=== PATIENT | female | born 1970 | race African-American/Black ===

== ENCOUNTER → 2016-12-30 | Outpatient (CLI) | payer SELFPAY ==
[2017-01-01 09:49] LABS: BLOOD UREA NITROGEN 7 mg/dL (7-20); CALCIUM 9.6 mg/dL (8.4-10.2); CARBON DIOXIDE 25 mmol/L (22-30); CHLORIDE 105 mmol/L (98-107); CREATININE RESULT 0.85 mg/dL (0.52-1.25); GLUCOSE 105 mg/dL (75-110); POTASSIUM 4.4 mmol/L (3.6-5.0)
[2017-01-01 09:50] LABS: ALANINE AMINOTRANSFERASE 51 U/L (9-52); ALBUMIN 4.1 g/dL (3.5-5.0); ALKALINE PHOSPHATASE 91 U/L (38-126); ANION GAP 11 (5-19); ASPARTATE AMINO TRANSFERASE 35 U/L (14-36); BILIRUBIN,DIRECT 0.3 mg/dL (0.0-0.4); BILIRUBIN,TOTAL 0.5 mg/dL (0.2-1.3); SODIUM 140.9 mmol/L (137-145); TOTAL PROTEIN 7.2 g/dL (6.3-8.2)
[2017-01-01 15:16] LABS: CHOLESTEROL 188.44 mg/dL (0-200); DIRECT LDL 110 mg/dL (<100); Direct HDL 35 mg/dL (>40); TRIGLYCERIDES 148 mg/dL (<150); VLDL CHOLESTEROL 29.6 mg/dL (10-31)
== END ==
LOC: OD 21:23
PROVIDERS: ATTEND Internal Medicine
DX: E55.9 Vitamin D deficiency, unspecified (principal); R73.09 Other abnormal glucose; Z13.220 Encounter for screening for lipoid disorders
CPT/HCPCS: 36415; 80053; 80061; 82306; 83036; 84443

== ENCOUNTER → 2016-12-31 | Outpatient (CLI) | payer SELFPAY | LOC: OD 08:11 | PROVIDERS: ATTEND Internal Medicine | DX: M54.41 Lumbago with sciatica, right side (principal) | CPT/HCPCS: 72100 ==

== ENCOUNTER 2018-01-25 19:32 | Emergency (ER) | payer SELFPAY ==
[2018-01-25] MEDS ORDERED: MECLIZINE HCL 25 MG TABLET PO ONE (21:23)
--- NOTE | 2018-01-25 21:27 | ER Document Report ---
ED Extremity Problem, Lower - General Chief Complaint: Leg Pain Stated Complaint: LT LEG PAIN Time Seen by Provider: 01/25/18 21:08 Notes: This is a 47-year-old female patient complaining of pain down the left leg as well as dizziness. Patient states that she overdid herself graduation on Wednesday. Was running around and on her feet all day long. Now having pain that shoots down her low back all the way down to her left lower extremity. Most of the pain is located behind the knee and in the calf. Patient states that she had a family member that had a blood clot before but this was not a blood relative. She is worried about blood clots and wanted to get checked out. Denies any chest pain but does have some dizziness that comes and goes. Seems to be worse with head movement. No fever, chills, sweats. No other major problems at this time. TRAVEL OUTSIDE OF THE [place] IN LAST 30 DAYS: No - HPI Patient complains to provider of: Pain Location: Leg - Related Data Allergies/Adverse Reactions: acetaminophen [From Percocet] Adverse Reaction (Verified 01/25/18 19:37) oxycodone [From Percocet] Adverse Reaction (Verified 01/25/18 19:37) Past Medical History - General Information source: Patient - Social History Smoking Status: Current Every Day Smoker Cigarette use (# per day): Yes Smoking Education Provided: Yes Frequency of alcohol use: None Drug Abuse: None Lives with: Spouse/Significant other Family History: Hypertension - Past Medical History Cardiac Medical History: Reports: Hx Hypertension Past Surgical History: Reports: Hx Cholecystectomy, Hx Hysterectomy, Hx Tubal Ligation - Immunizations Hx Diphtheria, Pertussis, Tetanus Vaccination: Yes Review of Systems - Review of Systems Constitutional: No symptoms reported EENT: See HPI, Vertigo. denies: Eye pain, Eye discharge, Blurred vision, Tearing, Double vision, Ear pain Cardiovascular: denies: Chest pain, Palpitations, Heart racing Respiratory: No symptoms reported Gastrointestinal: No symptoms reported Genitourinary: No symptoms reported Female Genitourinary: No symptoms reported Musculoskeletal: See HPI, Muscle pain, Leg swelling Skin: No symptoms reported Hematologic/Lymphatic: No symptoms reported Neurological/Psychological: No symptoms reported Physical Exam - Vital signs Vitals: Temp Pulse Resp BP Pulse Ox 98.7 F 78 20 151/89 H 99 01/25/18 19:53 01/25/18 19:53 01/25/18 19:53 01/25/18 19:53 01/25/18 19:53 Interpretation: Normal - General General appearance: Appears well, Alert - HEENT Head: Normocephalic, Atraumatic Eyes: Normal Pupils: PERRL - Respiratory Respiratory status: No respiratory distress Chest status: Nontender Breath sounds: Normal Chest palpation: Normal - Cardiovascular Rhythm: Regular Heart sounds: Normal auscultation Murmur: No - Abdominal Inspection: Normal Distension: No distension Bowel sounds: Normal Tenderness: Nontender Organomegaly: No organomegaly - Back Back: Normal, Nontender - Extremities General upper extremity: Normal inspection, Nontender, Normal color, Normal ROM , Normal temperature General lower extremity: Normal inspection, Nontender, Normal color, Normal ROM , Normal temperature, Normal weight bearing. No: Reta's sign - Neurological Neuro grossly intact: Yes Cognition: Normal Orientation: AAOx4 [place] Coma Scale Eye Opening: Spontaneous [place] Coma Scale Verbal: Oriented Ry Coma Scale Motor: Obeys Commands Ry Coma Scale Total: 15 Speech: Normal Motor strength normal: LUE, RUE, LLE, RLE Additional motor exam normals: Equal cinder snapper Babinski reflex: Normal (flexor plantar) Sensory: Normal Notes: Vision has reproducible dizziness with Mears-Hallpike maneuver with head turned to the left. No obvious nystagmus. - Psychological Associated symptoms: Normal affect, Normal mood - Skin Skin Temperature: Warm Skin Moisture: Dry Skin Color: Normal Course - Re-evaluation Re-evalutation: 01/25/18 21:26 Unlikely this represents a blood clot as it seems to be coming from her low back area and more consistent with a muscle strain. Is tender to palpation in the hamstrings and in the calf muscle. Will do ultrasound to rule out DVT, will get some basic labs based on her dizziness. EKG, CBC chemistry ordered. 01/25/18 21:58 01/25/18 23:04 Laboratory 01/25/18 01/25/18 01/25/18 21:58 21:58 22:20 WBC 7.5 RBC 3.78 Hgb 11.8 L Hct 35.2 L MCV 93 MCH 31.4 MCHC 33.6 RDW 14.2 H Plt Count 186 Seg Neutrophils % 33.8 L Lymphocytes % 56.1 H Monocytes % 6.7 Eosinophils % 2.8 Basophils % 0.6 Absolute Neutrophils 2.5 Absolute Lymphocytes 4.2 Absolute Monocytes 0.5 Absolute Eosinophils 0.2 Absolute Basophils 0.0 Sodium 143.6 Potassium 3.8 Chloride 108 H Carbon Dioxide 27 Anion Gap 9 BUN 11 Creatinine 0.82 Est GFR ( Amer) > 60 Est GFR (Non-Af Amer) > 60 Glucose 86 Calcium 9.4 Total Bilirubin 0.3 Direct Bilirubin 0.2 Neonat Total Bilirubin Not Reportable Neonat Direct Bilirubin Not Reportable Neonat Indirect Bili Not Reportable AST 43 H ALT 39 Alkaline Phosphatase 82 Total Protein 7.6 Albumin 4.2 Urine Color YELLOW Urine Appearance CLEAR Urine pH 7.0 Ur Specific [place] 1.012 Urine Protein NEGATIVE Urine Glucose (UA) NEGATIVE Urine Ketones NEGATIVE Urine Blood MODERATE H Urine Nitrite NEGATIVE Urine Bilirubin NEGATIVE Urine Urobilinogen NEGATIVE Ur Leukocyte Esterase NEGATIVE Urine WBC (Auto) 1 Urine RBC (Auto) 1 Squamous Epi Cells Auto 5 Urine Mucus (Auto) RARE Urine Ascorbic Acid NEGATIVE At this time I believe that the labs are fairly unremarkable. EKG unremarkable. Feels better. Ultrasound negative. Will recommend close outpatient follow-up. Return for any worsening symptoms or concerns. Patient states that her pain gets better on ibuprofen so we will write her prescription for some prescription strength ibuprofen. - Vital Signs Vital signs: Temp Pulse Resp BP Pulse Ox 98.7 F 78 20 151/89 H 99 01/25/18 19:53 01/25/18 19:53 01/25/18 19:53 01/25/18 19:53 01/25/18 19:53 - Laboratory Result Diagrams: 01/25/18 21:58 01/25/18 21:58 Laboratory results interpreted by me: 01/25/18 01/25/18 01/25/18 21:58 21:58 22:20 Hgb 11.8 L Hct 35.2 L RDW 14.2 H Seg Neutrophils % 33.8 L Lymphocytes % 56.1 H Chloride 108 H AST 43 H Urine Blood MODERATE H - EKG Interpretation by Me EKG shows normal: Sinus rhythm, [place], Intervals, QRS Complexes, ST-T Waves Discharge - Discharge Clinical Impression: Vertigo, Leg pain, left Condition: Good Disposition: HOME, SELF-CARE Instructions: Leg Pain Nonspecific ([facility]), Vertigo ([facility]) Additional Instructions: Continue with ibuprofen 3 times a day. Meclizine as needed for the dizziness. Follow-up with your regular doctor. If symptoms are getting worse or you begin to have any worsening symptoms or concerns please return for repeat evaluation if unable to be seen by your primary care doctor. Prescriptions: Ibuprofen [Motrin 800 mg Tablet] 800 mg PO Q8H PRN 10 Days #30 tab PRN Reason: For Pain Scale 3-4 Meclizine HCl 25 mg PO BID PRN 10 Days #20 tablet PRN Reason: Dizziness Forms: Return to Work Referrals: MAGDI DENNY MD [[facility]] - Follow up as needed
[2018-01-25 22:22] LABS: ABSOLUTE EOSINOPHILS # (AUTO) 0.2 10^3/uL (0.0-0.6); ABSOLUTE LYMPHOCYTES (AUTO) 4.2 10^3/uL (0.5-4.7); ABSOLUTE MONOCYTES (AUTO) 0.5 10^3/uL (0.1-1.4); ABSOLUTE NEUT (AUTO) 2.5 10^3/uL (1.7-8.2); BASOPHILS % (AUTO) 0.6 % (0-2); EOSINOPHILS % (AUTO) 2.8 % (0-6); HEMATOCRIT 35.2 % (36.0-47.0); HEMOGLOBIN 11.8 g/dL (12.0-15.5); LYMPHOCYTES % (AUTO) 56.1 % (13-45); MEAN CORPUSCULAR HEMOGLOBIN 31.4 pg (27.0-33.4); MEAN CORPUSCULAR HGB CONC 33.6 g/dL (32.0-36.0); MEAN CORPUSCULAR VOLUME 93 fl (80-97); MONOCYTES % (AUTO) 6.7 % (3-13); PLATELET COUNT 186 10^3/uL (150-450); RED BLOOD COUNT 3.78 10^6/uL (3.72-5.28); RED CELL DISTRIBUTION WIDTH 14.2 % (11.5-14.0); SEGMENTED NEUTROPHILS % (AUTO) 33.8 % (42-78); TOTAL CELLS COUNTED % (AUTO) 100 %; WHITE BLOOD COUNT 7.5 10^3/uL (4.0-10.5)
[2018-01-25 22:34] LABS: APPEARANCE,URINE CLEAR; BILIRUBIN,URINE NEGATIVE (NEGATIVE); COLOR,URINE YELLOW; GLUCOSE, URINE NEGATIVE (NEGATIVE); KETONES,URINE NEGATIVE (NEGATIVE); LEUKOCYTE ESTERASE,URINE NEGATIVE (NEGATIVE); NITRITE,URINE NEGATIVE (NEGATIVE); PROTEIN,URINE NEGATIVE (NEGATIVE); URINE SPECIFIC GRAVITY 1.012; UROBILINOGEN,URINE NEGATIVE mg/dL (<2.0)
[2018-01-25 22:56] LABS: ALANINE AMINOTRANSFERASE 39 U/L (9-52); ALBUMIN 4.2 g/dL (3.5-5.0); ALKALINE PHOSPHATASE 82 U/L (38-126); ANION GAP 9 (5-19); ASPARTATE AMINO TRANSFERASE 43 U/L (14-36); BILIRUBIN,DIRECT 0.2 mg/dL (0.0-0.4); BILIRUBIN,TOTAL 0.3 mg/dL (0.2-1.3); BLOOD UREA NITROGEN 11 mg/dL (7-20); CALCIUM 9.4 mg/dL (8.4-10.2); CARBON DIOXIDE 27 mmol/L (22-30); CHLORIDE 108 mmol/L (98-107); GLUCOSE 86 mg/dL (75-110); POTASSIUM 3.8 mmol/L (3.6-5.0); SODIUM 143.6 mmol/L (137-145); TOTAL PROTEIN 7.6 g/dL (6.3-8.2)
[2018-01-25] MEDS ORDERED: IBUPROFEN 800 MG TABLET PO ONE (23:05)
[2018-01-26 00:34] VITALS: BP 140/84
--- NOTE | 2018-01-26 07:16 | EKG REPORT ---
SEVERITY:- BORDERLINE ECG - SINUS RHYTHM BORDERLINE LEFT AXIS DEVIATION BORDERLINE T ABNORMALITIES, INFERIOR LEADS : Confirmed by: Ryan Willis MD 26-Jan-2018 07:16:05
--- NOTE | 2018-01-26 08:05 | XCELERA REPORT ---
[address] [address] Lower Extremity Venous Evaluation Name: DONNY CHANDLER Age: 47 yrs Gender: Female : 1970 Patient Status: Preadmit Patient Location: ER Study Date: 01/25/2018 09:26 PM Procedure: Color flow and duplex imaging of the veins of the left lower extremity as well as the right Common Femoral vein. Reason For Study: Left leg pain, possible DVT Ordering Physician: ANDREW VALENCIA Performed By: Barby Bennett Right Sided Venous Evaluation The right common femoral vein is fully compressible. Spontaneous and phasic flow is present in the right common femoral vein. Left Sided Venous Evaluation Posterior Tibial vein hard to see. Normal vessel filling wall to wall, compression and augmentation as well as Colour flow down to the infrageniculate veins. Interpretation Summary No duplex evidence of DVT or obstruction in the left lower extremity nor in the right Common Femoral vein. : ANDREW VALENCIA > Wilder Felix
== END 2018-01-26 00:30 | disposition home or self-care (01) ==
LOC: ER 19:32
DX: R42 Dizziness and giddiness (principal); M79.605 Pain in left leg; F17.210 Nicotine dependence, cigarettes, uncomplicated; I10 Essential (primary) hypertension; Z88.6 Allergy status to analgesic agent; Z90.49 Acquired absence of other specified parts of digestive tract; Z90.710 Acquired absence of both cervix and uterus
CPT/HCPCS: 36415; 80053; 81001; 85025; 93005; 93010; 93971; 99284

== ENCOUNTER 2018-09-28 12:15 | Emergency (ER) | payer SELFPAY ==
[2018-09-28] MEDS ORDERED: ASPIRIN 81 MG TABLET, CHEWABLE PO ONE (12:39)
[2018-09-28] MEDS ORDERED: LABETALOL HCL INJ 20 MG/4 ML DISP.SYRIN IV ONE (12:40)
--- NOTE | 2018-09-28 12:41 | ER Document Report ---
ED Medical Screen (RME) - General Chief Complaint: Chest Pain Stated Complaint: CHEST PAIN Time Seen by Provider: 09/28/18 12:35 Notes: 48 years old female presents today with a 2-day history of elevated blood pressure chest pain palpitation, headache numbness tingling sensation over the right arm. No weakness. Also had neck pain but no neck stiffness. On examination-appears anxious. No nuchal rigidity, no focal weaknesses noted. Normal heart sounds TRAVEL OUTSIDE OF THE [place] IN LAST 30 DAYS: No - Related Data Allergies/Adverse Reactions: acetaminophen [From Percocet] Adverse Reaction (Verified 09/28/18 12:19) oxycodone [From Percocet] Adverse Reaction (Verified 09/28/18 12:19) Past Medical History - Past Medical History Cardiac Medical History: Reports: Hx Hypertension Renal/ Medical History: Denies: Hx Peritoneal Dialysis Past Surgical History: Reports: Hx Cholecystectomy, Hx Hysterectomy, Hx Tubal Ligation - Immunizations Hx Diphtheria, Pertussis, Tetanus Vaccination: Yes Physical Exam - Vital signs Vitals: Temp Pulse Resp BP Pulse Ox 98.6 F 89 16 178/125 H 98 09/28/18 12:21 09/28/18 12:21 09/28/18 12:21 09/28/18 12:21 09/28/18 12:21 Course - Vital Signs Vital signs: Temp Pulse Resp BP Pulse Ox 98.6 F 89 16 178/125 H 98 09/28/18 12:21 09/28/18 12:21 09/28/18 12:21 09/28/18 12:21 09/28/18 12:21
[2018-09-28 13:39] LABS: ABSOLUTE MONOCYTES (AUTO) 0.4 10^3/uL (0.1-1.4); ABSOLUTE NEUT (AUTO) 6.7 10^3/uL (1.7-8.2); BASOPHILS % (AUTO) 0.5 % (0-2); HEMATOCRIT 39.3 % (36.0-47.0); HEMOGLOBIN 13.6 g/dL (12.0-15.5); LYMPHOCYTES % (AUTO) 21.8 % (13-45); MEAN CORPUSCULAR HEMOGLOBIN 31.8 pg (27.0-33.4); MEAN CORPUSCULAR HGB CONC 34.5 g/dL (32.0-36.0); MEAN CORPUSCULAR VOLUME 92 fl (80-97); MONOCYTES % (AUTO) 4.5 % (3-13); PLATELET COUNT 202 10^3/uL (150-450); RED BLOOD COUNT 4.26 10^6/uL (3.72-5.28); SEGMENTED NEUTROPHILS % (AUTO) 73.2 % (42-78); TOTAL CELLS COUNTED % (AUTO) 100 %; WHITE BLOOD COUNT 9.1 10^3/uL (4.0-10.5)
[2018-09-28 14:03] LABS: ALANINE AMINOTRANSFERASE 86 U/L (9-52); ALBUMIN 4.8 g/dL (3.5-5.0); ALKALINE PHOSPHATASE 111 U/L (38-126); ANION GAP 14 (5-19); ASPARTATE AMINO TRANSFERASE 50 U/L (14-36); BILIRUBIN,DIRECT 0.3 mg/dL (0.0-0.4); BILIRUBIN,TOTAL 0.5 mg/dL (0.2-1.3); BLOOD UREA NITROGEN 15 mg/dL (7-20); CALCIUM 9.8 mg/dL (8.4-10.2); CARBON DIOXIDE 27 mmol/L (22-30); CHLORIDE 99 mmol/L (98-107); CREATINE KINASE 28 U/L (30-135); GLUCOSE 161 mg/dL (75-110); POTASSIUM 4.5 mmol/L (3.6-5.0); SODIUM 139.5 mmol/L (137-145); TOTAL PROTEIN 8.2 g/dL (6.3-8.2)
[2018-09-28 14:18] LABS: CREATINE KINASE MB 0.27 ng/mL (<4.55)
[2018-09-28 14:20] LABS: TROPONIN I < 0.012 ng/mL
--- NOTE | 2018-09-28 14:25 | RADIOLOGY REPORT (SQ) ---
EXAM DESCRIPTION: CHEST SINGLE VIEW COMPLETED DATE/TIME: 09/28/2018 2:17 pm REASON FOR STUDY: Chest pain COMPARISON: 01/10/2013 EXAM PARAMETERS: NUMBER OF VIEWS: One view. TECHNIQUE: Single frontal radiographic view of the chest acquired. RADIATION DOSE: NA LIMITATIONS: None. FINDINGS: LUNGS AND PLEURA: No opacities, masses or pneumothorax. No pleural effusion. MEDIASTINUM AND HILAR STRUCTURES: No masses. Contour normal. HEART AND VASCULAR STRUCTURES: Heart normal in size. Normal vasculature. BONES: No acute findings. HARDWARE: None in the chest. OTHER: No other significant finding. IMPRESSION: NO ACUTE RADIOGRAPHIC FINDING IN THE CHEST. TECHNICAL DOCUMENTATION: JOB ID: [id number] [employer]- All Rights Reserved Reading location - IP/workstation name: [email or web address]
--- NOTE | 2018-09-28 14:30 | RADIOLOGY REPORT (SQ) ---
EXAM DESCRIPTION: CT HEAD WITHOUT COMPLETED DATE/TIME: 09/28/2018 2:12 pm REASON FOR STUDY: Headache and dizziness COMPARISON: 06/25/10. TECHNIQUE: Axial images acquired through the brain without intravenous contrast. Images reviewed wi th bone, brain and subdural windows. Additional sagittal and coronal reconstructions were generated. Images stored on PACS. All CT scanners at this facility use dose modulation, iterative reconstruction, and/or weight based d osing when appropriate to reduce radiation dose to as low as reasonably achievable (ALARA). [facility]: Dose Right [facility]: CareDose [facility]: Dose Right [facility]: Teradose 4D [facility]: Smart [employer] RADIATION DOSE: CT Rad equipment meets quality standard of care and radiation dose reduction techniq ues were employed. CTDIvol: 53.2 mGy. DLP: 1070 mGy-cm. mGy. LIMITATIONS: None. FINDINGS: VENTRICLES: Normal size and contour. CEREBRUM: No masses. No hemorrhage. No midline shift. No evidence for acute infarction. Normal gra y/white matter differentiation. No areas of low density in the white matter. CEREBELLUM: No masses. No hemorrhage. No alteration of density. No evidence for acute infarction. EXTRAAXIAL SPACES: No fluid collections. No masses. ORBITS AND GLOBE: No intra- or extraconal masses. Normal contour of globe without masses. CALVARIUM: No fracture. PARANASAL SINUSES: Mild polypoid mucosal thickening within the right maxillary sinus. Remaining para nasal sinuses and mastoid air cells are clear. SOFT TISSUES: No mass or hematoma. OTHER: Enlarged partially empty sella turcica, stable. IMPRESSION: No evidence of acute intracranial process. Enlarged partially empty sella turcica, stable. EVIDENCE OF ACUTE STROKE: NO. COMMENT: Quality ID # [id number]: Final reports with documentation of one or more dose reduction techniques (e.g., Automated exposure control, adjustment of the mA and/or kV according to patient size, use of iterative reconstruction technique) TECHNICAL DOCUMENTATION: JOB ID: [id number] [employer]- All Rights Reserved Reading location - IP/workstation name: [email or web address]
--- NOTE | 2018-09-28 16:11 | ER Document Report ---
ED General - General Chief Complaint: Chest Pain Stated Complaint: CHEST PAIN Time Seen by Provider: 09/28/18 12:35 Primary Care Provider: LUX MARQUEZ MD [ACTIVE STAFF] - Follow up in 3-5 days (cardiology, call for stress test set up.) ELADIO ARREOLA DO [Primary Care Provider] - Follow up as needed Notes: Patient is a 48-year-old female that presents to the emergency department for chief complaint of chest pain, and tingling in her face. Patient states the symptoms started earlier today, they have been coming and going, which she feels a tightness in her chest, and tingling along her right face, she states that it comes and goes. She is had some pain in her neck on the right side as well, with mild shortness of breath associated with this. It does not appear to be worse with exertion or better with rest. She denies noting any recent cough, fevers, chills, night sweats, nausea, vomiting or diaphoresis. Reports family history of coronary disease in her mother, denies personal history of diabetes, hyperlipidemia or heart disease. She does admit to having hypertension, was just recently started on a low-dose hydrochlorothiazide pill. Former smoker. Past Medical History: Hypertension, GERD Past Surgical History: Cholecystectomy, partial hysterectomy Social History: Former smoker, admits occasional alcohol use, denies illicit drug use. Family History: Reviewed and noncontributory for presenting illness Allergies: Reviewed, see documented allergy list. REVIEW OF SYSTEMS: Other than noted above, the 12 point review of systems was reviewed with the patient and were negative, all pertinent findings are included in the HPI. PHYSICAL EXAMINATION: Vital signs reviewed, nursing noted reviewed. GENERAL: Obese female, in no acute distress. HEAD: Atraumatic, normocephalic. EYES: Eyes appear normal, extraocular movements intact, sclera anicteric, conjunctiva are normal. ENT: nares patent, oropharynx clear without exudates. Moist mucous membranes. NECK: Normal range of motion, supple without lymphadenopathy, no neck tenderness to palpation, no midline tenderness or deformity. LUNGS: Breath sounds clear to auscultation bilaterally and equal. No wheezes rales or rhonchi. HEART: Regular rate and rhythm without murmurs ABDOMEN: Soft, nontender, normoactive bowel sounds. No rebound, guarding, or rigidity. No masses appreciated. EXTREMITIES: Nontender, good range of motion, no pitting or edema. NEUROLOGICAL: No focal neurological deficits. Moves all extremities s pontaneously Motor and sensory grossly intact on exam. PSYCH: Normal mood, normal affect. SKIN: Warm, Dry, normal turgor, no rashes or lesions noted on exposed skin TRAVEL OUTSIDE OF THE [place] IN LAST 30 DAYS: No - Related Data Allergies/Adverse Reactions: acetaminophen [From Percocet] Adverse Reaction (Verified 09/28/18 12:19) oxycodone [From Percocet] Adverse Reaction (Verified 09/28/18 12:19) Past Medical History - Social History Smoking Status: Current Some Day Smoker Chew tobacco use (# tins/day): No Frequency of alcohol use: Occasional Drug Abuse: None Family History: Hypertension Patient has suicidal ideation: No Patient has homicidal ideation: No - Past Medical History Cardiac Medical History: Reports: Hx Hypertension Renal/ Medical History: Denies: Hx Peritoneal Dialysis Past Surgical History: Reports: Hx Cholecystectomy, Hx Hysterectomy, Hx Tubal Ligation - Immunizations Hx Diphtheria, Pertussis, Tetanus Vaccination: Yes Physical Exam - Vital signs Vitals: Temp Pulse Resp BP Pulse Ox 98.6 F 89 16 178/125 H 98 09/28/18 12:21 09/28/18 12:21 09/28/18 12:21 09/28/18 12:21 09/28/18 12:21 Course - Re-evaluation Re-evalutation: Patient seen and examined vital signs reviewed. Laboratory data and imaging were ordered as appropriate for the patient's presenting symptoms and complaint, with consideration of any critical or life threatening conditions that may be associated with their obtained history and exam as noted above. Patient was treated with aspirin and labetalol 10 mg IV ordered by triage provider. Results were reviewed when available and demonstrated negative and unremarkable blood work, troponin negative x2 The patient was re-evaluated and was stable Evaluation was most consistent with chest pain, facial paresthesias Results were discussed with the patient at this point, after careful consideration I feel that that patient can be discharged from the emergency department, the patient was educated treatments and reasons to return to the emergency department based on their presumed diagnosis as noted above, they were advised to followup with a primary care physician in 2-3 days. Patient was agreeable to plan of care. Presentation of chest pain in an otherwise well appearing patient. Low clinical suspicion for ACS given clinical history, exam, EKG without ST elevations or depressions, and negative initial troponin. HEART score less than or equal to 3. PE also seems unlikely given clinical history, absence of tachycardia or dyspnea. Patient is PERC criteria negative. CXR without evidence of pneumothorax or pneumonia. No widened mediastinum. Aortic dissection also seems unlikely given history, symmetric pulses, CXR, and vitals. HEART Score: History 0 ECG 0 Age 1 Risk Factors 2 Troponin 0 Total: 3 Chest pain in a patient without evidence of cardiac or other serious etiology on workup today. I discussed with patient that, based on their age, risk factors and emergency department testing today, the likelihood that their symptoms are related to a heart attack is very low (estimated risk of heart attack or over the next 30 days of less than 1%). The patient demonstrates decision making capacity and has verbalized an understanding of these risks to me. Based on this, the patient has chosen to follow-up as an outpatient. Usual chest pain return precautions reviewed. The patient states understanding and agreement with this plan. *Note is created using voice recognition software and may contain spelling, syntax or grammatical errors. Laboratory 09/28/18 09/28/18 09/28/18 13:20 13:20 13:20 WBC 9.1 RBC 4.26 Hgb 13.6 Hct 39.3 MCV 92 MCH 31.8 MCHC 34.5 RDW 14.0 Plt Count 202 Seg Neutrophils % 73.2 Lymphocytes % 21.8 Monocytes % 4.5 Eosinophils % 0.0 Basophils % 0.5 Absolute Neutrophils 6.7 Absolute Lymphocytes 2.0 Absolute Monocytes 0.4 Absolute Eosinophils 0.0 Absolute Basophils 0.0 Sodium 139.5 Potassium 4.5 Chloride 99 Carbon Dioxide 27 Anion Gap 14 BUN 15 Creatinine 0.91 Est GFR ( Amer) > 60 Est GFR (Non-Af Amer) > 60 Glucose 161 H Calcium 9.8 Total Bilirubin 0.5 Direct Bilirubin 0.3 Neonat Total Bilirubin Not Reportable Neonat Direct Bilirubin Not Reportable Neonat Indirect Bili Not Reportable AST 50 H ALT 86 H Alkaline Phosphatase 111 Creatine Kinase 28 L CK-MB (CK-2) 0.27 Troponin I < 0.012 Total Protein 8.2 Albumin 4.8 09/28/18 16:26 WBC RBC Hgb Hct MCV MCH MCHC RDW Plt Count Seg Neutrophils % Lymphocytes % Monocytes % Eosinophils % Basophils % Absolute Neutrophils Absolute Lymphocytes Absolute Monocytes Absolute Eosinophils Absolute Basophils Sodium Potassium Chloride Carbon Dioxide Anion Gap BUN Creatinine Est GFR ( Amer) Est GFR (Non-Af Amer) Glucose Calcium Total Bilirubin Direct Bilirubin Neonat Total Bilirubin Neonat Direct Bilirubin Neonat Indirect Bili AST ALT Alkaline Phosphatase Creatine Kinase CK-MB (CK-2) Troponin I < 0.012 Total Protein Albumin Chest X-Ray 09/28/18 12:39 IMPRESSION: NO ACUTE RADIOGRAPHIC FINDING IN THE CHEST. Head CT 09/28/18 12:39 IMPRESSION: No evidence of acute intracranial process. Enlarged partially empty sella turcica, stable. EVIDENCE OF ACUTE STROKE: NO. - Vital Signs Vital signs: Temp Pulse Resp BP Pulse Ox 98.6 F 89 20 125/91 H 98 09/28/18 12:21 09/28/18 12:21 09/28/18 18:01 09/28/18 18:01 09/28/18 18:01 - Laboratory Result Diagrams: 09/28/18 13:20 09/28/18 13:20 Laboratory results interpreted by me: 09/28/18 13:20 Glucose 161 H AST 50 H ALT 86 H Creatine Kinase 28 L - EKG Interpretation by Me Additional EKG results interpreted by me: EKG demonstrates sinus rhythm with a ventricular rate of 86 bpm, left axis deviation, normal intervals, no evidence of acute ischemia on this EKG, no ST changes. This is compared with the prior EKG from 01/25/2018, without significant change. Discharge - Discharge Clinical Impression: Facial paresthesia Chest pain Qualifiers: Chest pain type: unspecified Qualified Code(s): R07.9 - Chest pain, unspecified Condition: Stable Disposition: HOME, SELF-CARE Instructions: Chest Pain of Unclear Cause ([facility]) Additional Instructions: Please follow-up with your primary care physician regarding her blood pressure, and follow-up with cardiology to set up a stress test. If you have worsening of your symptoms or further concerns, you can always return to the emergency department to be reevaluated. Referrals: ELADIO ARREOLA DO [Primary Care Provider] - Follow up as needed LUX MARQUEZ MD [ACTIVE STAFF] - Follow up in 3-5 days (cardiology, call for stress test set up.)
[2018-09-28 18:14] VITALS: BP 125/91
--- NOTE | 2018-09-29 10:45 | EKG REPORT ---
SEVERITY:- ABNORMAL ECG - SINUS RHYTHM LVH BY VOLTAGE NONSPECIFIC T ABNORMALITIES, INFERIOR LEADS : Confirmed by: Sujye Young MD 29-Sep-2018 10:45:02
== END 2018-09-28 18:22 | disposition home or self-care (01) ==
LOC: ER 12:15
DX: R07.9 Chest pain, unspecified (principal); R20.0 Anesthesia of skin; M54.2 Cervicalgia; R06.02 Shortness of breath; I10 Essential (primary) hypertension; F17.200 Nicotine dependence, unspecified, uncomplicated
CPT/HCPCS: 93005; 99285; 96374; 36415; 82553; 82550; 85025; 80053; 84484; 71045; 70450; 93010; J3490

== ENCOUNTER 2019-01-16 09:09 | Emergency (ER) | payer SELFPAY ==
[2019-01-16] MEDS ORDERED: ONDANSETRON 4 MG TAB.RAPDIS PO ONE (10:06)
--- NOTE | 2019-01-16 10:09 | ER Document Report ---
ED Medical Screen (RME) - General Chief Complaint: High Blood Pressure Stated Complaint: ARM PAIN Time Seen by Provider: 01/16/19 09:56 Primary Care Provider: ELADIO ARREOLA DO [Primary Care Provider] - Follow up as needed Mode of Arrival: Ambulatory Information source: Patient Notes: Patient presents to the emergency department with complaints of high blood pressure chest pain left arm pain. Patient reports on Wednesday she noted bilateral neck pain. The next day her left arm began hurting. She denies trauma. She reports yesterday and today she started having some nausea hot flashes and what she believes is indigestion and still having left arm pain. Denies history of cardiac disease. Is unsure of family history of cardiac disease. Does have history of high blood pressure. She took her hydrochlorothiazide today. She also took 4 baby aspirin. Denies fever vomiting or diarrhea. I have greeted and performed a rapid initial assessment of this patient. A comprehensive ED assessment and evaluation of the patient, analysis of test results and completion of the medical decision making process will be conducted by additional ED providers. Dictation of this chart was performed using voice recognition software; therefore, there may be some unintended grammatical errors. TRAVEL OUTSIDE OF THE [place] IN LAST 30 DAYS: No - Related Data Allergies/Adverse Reactions: acetaminophen [From Percocet] Adverse Reaction (Verified 01/16/19 09:10) oxycodone [From Percocet] Adverse Reaction (Verified 01/16/19 09:10) Past Medical History - Social History Chew tobacco use (# tins/day): No Frequency of alcohol use: Occasional Drug Abuse: None - Past Medical History Cardiac Medical History: Reports: Hx Hypertension Renal/ Medical History: Denies: Hx Peritoneal Dialysis Past Surgical History: Reports: Hx Cholecystectomy, Hx Hysterectomy, Hx Tubal Ligation - Immunizations Hx Diphtheria, Pertussis, Tetanus Vaccination: Yes Physical Exam - Vital signs Vitals: Temp Pulse Resp BP Pulse Ox 98.2 F 96 18 149/100 H 97 01/16/19 09:12 01/16/19 09:12 01/16/19 09:12 01/16/19 09:12 01/16/19 09:12 Course - Vital Signs Vital signs: Temp Pulse Resp BP Pulse Ox 98.2 F 96 18 149/100 H 97 01/16/19 09:12 01/16/19 09:12 01/16/19 09:12 01/16/19 09:12 01/16/19 09:12 Doctor's Discharge - Discharge Referrals: ELADIO ARREOLA DO [Primary Care Provider] - Follow up as needed
[2019-01-16 10:39] LABS: ABSOLUTE EOSINOPHILS # (AUTO) 0.2 10^3/uL (0.0-0.6); ABSOLUTE MONOCYTES (AUTO) 0.3 10^3/uL (0.1-1.4); ABSOLUTE NEUT (AUTO) 1.3 10^3/uL (1.7-8.2); EOSINOPHILS % (AUTO) 3.9 % (0-6); HEMATOCRIT 37.8 % (36.0-47.0); HEMOGLOBIN 12.7 g/dL (12.0-15.5); LYMPHOCYTES % (AUTO) 52.2 % (13-45); MEAN CORPUSCULAR HEMOGLOBIN 31.1 pg (27.0-33.4); MEAN CORPUSCULAR HGB CONC 33.6 g/dL (32.0-36.0); MEAN CORPUSCULAR VOLUME 93 fl (80-97); MONOCYTES % (AUTO) 8.6 % (3-13); PLATELET COUNT 148 10^3/uL (150-450); RED BLOOD COUNT 4.09 10^6/uL (3.72-5.28); RED CELL DISTRIBUTION WIDTH 13.9 % (11.5-14.0); SEGMENTED NEUTROPHILS % (AUTO) 34.3 % (42-78); TOTAL CELLS COUNTED % (AUTO) 100 %; WHITE BLOOD COUNT 3.9 10^3/uL (4.0-10.5)
[2019-01-16 11:04] LABS: ALANINE AMINOTRANSFERASE 36 U/L (9-52); ALBUMIN 4.5 g/dL (3.5-5.0); ALKALINE PHOSPHATASE 70 U/L (38-126); ANION GAP 9 (5-19); ASPARTATE AMINO TRANSFERASE 36 U/L (14-36); BILIRUBIN,DIRECT 0.4 mg/dL (0.0-0.4); BILIRUBIN,TOTAL 0.8 mg/dL (0.2-1.3); BLOOD UREA NITROGEN 14 mg/dL (7-20); CALCIUM 9.8 mg/dL (8.4-10.2); CARBON DIOXIDE 31 mmol/L (22-30); CHLORIDE 102 mmol/L (98-107); CREATINE KINASE 79 U/L (30-135); GLUCOSE 104 mg/dL (75-110); LIPASE 45.3 U/L (23-300); POTASSIUM 3.6 mmol/L (3.6-5.0); TOTAL PROTEIN 7.9 g/dL (6.3-8.2)
--- NOTE | 2019-01-16 11:17 | RADIOLOGY REPORT (SQ) ---
EXAM DESCRIPTION: CHEST 2 VIEWS COMPLETED DATE/TIME: 01/16/2019 10:43 am REASON FOR STUDY: cp COMPARISON: None. TECHNIQUE: Frontal and lateral radiographic views of the chest acquired. NUMBER OF VIEWS: Two view. LIMITATIONS: None. FINDINGS: LUNGS AND PLEURA: No opacities, masses or pneumothorax. No pleural effusion. MEDIASTINUM AND HILAR STRUCTURES: No masses or contour abnormalities. HEART AND VASCULAR STRUCTURES: Heart normal size. No evidence for failure. BONES: No acute findings. HARDWARE: None in the chest. OTHER: No other significant finding. IMPRESSION: NO SIGNIFICANT RADIOGRAPHIC FINDING IN THE CHEST. TECHNICAL DOCUMENTATION: JOB ID: [id number]- All Rights Reserved Reading location - IP/workstation name: [email or web address]
[2019-01-16 12:32] LABS: APPEARANCE,URINE SLIGHTLY-CLOUDY; BILIRUBIN,URINE NEGATIVE (NEGATIVE); COLOR,URINE YELLOW; GLUCOSE, URINE NEGATIVE (NEGATIVE); KETONES,URINE NEGATIVE (NEGATIVE); LEUKOCYTE ESTERASE,URINE NEGATIVE (NEGATIVE); NITRITE,URINE NEGATIVE (NEGATIVE); PROTEIN,URINE NEGATIVE (NEGATIVE); URINE SPECIFIC GRAVITY 1.018; UROBILINOGEN,URINE NEGATIVE mg/dL (<2.0)
[2019-01-16] MEDS ORDERED: KETOROLAC TROMETHAMINE INJ/PF 30 MG/1 ML SDV IV ONE (13:16)
[2019-01-16] MEDS ORDERED: DIAZEPAM 5 MG TABLET PO ONE (13:17)
[2019-01-16 13:18] VITALS: BP 144/95
--- NOTE | 2019-01-16 13:22 | ER Document Report ---
ED General - General Chief Complaint: High Blood Pressure Stated Complaint: ARM PAIN Time Seen by Provider: 01/16/19 09:56 Primary Care Provider: ELADIO ARREOLA DO [Primary Care Provider] - Follow up as needed Mode of Arrival: Ambulatory Information source: Patient, [facility] Records Notes: 48-year-old female with hypertension on hydrochlorothiazide presents with multiple complaints including neck pain, left bicep pain and midsternal chest pain. Patient states neck pain started 4 days prior to arrival. She describes it as bilateral, aching. Left arm pain started 3 days prior to arrival. It is located in her left bicep described as an aching throbbing pain that is worse with extension. 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 She did try to take ibuprofen without relief. Patient's chest pain started this morning and she describes it as a burning pain that is currently gone. Patient does smoke 3 cigarettes daily, occasionally drinks. She denies any previous history of [place], CVA. TRAVEL OUTSIDE OF THE [place] IN LAST 30 DAYS: No - HPI Onset: Other Onset/Duration: Gradual, Intermittent, Better Quality of pain: Achy, Throbbing Severity: Mild Associated symptoms: Body/muscle aches, Chest pain, Nausea. denies: Headache, Leg swelling, Vomiting, Shortness of breath, Sweating, Weakness Exacerbated by: Movement Relieved by: Denies Similar symptoms previously: No Recently seen / treated by doctor: No - Related Data Allergies/Adverse Reactions: acetaminophen [From Percocet] Adverse Reaction (Verified 01/16/19 09:10) oxycodone [From Percocet] Adverse Reaction (Verified 01/16/19 09:10) Past Medical History - General Information source: Patient - Social History Smoking Status: Current Every Day Smoker Cigarette use (# per day): Yes - 3 Chew tobacco use (# tins/day): No Smoking Education Provided: Yes - Smoking cessation counseling was provided for 4 minutes at the bedside Frequency of alcohol use: Occasional Drug Abuse: None Lives with: Spouse/Significant other Family History: Hypertension Patient has suicidal ideation: No Patient has homicidal ideation: No - Past Medical History Cardiac Medical History: Reports: Hx Hypertension Renal/ Medical History: Denies: Hx Peritoneal Dialysis Past Surgical History: Reports: Hx Cholecystectomy, Hx Hysterectomy, Hx Tubal Ligation - Immunizations Hx Diphtheria, Pertussis, Tetanus Vaccination: Yes Review of Systems - Review of Systems Notes: REVIEW OF SYSTEMS: CONSTITUTIONAL : Denies fever, chills, or sweats. Denies recent illness. Denies weight loss, recent hospitalizations. EENT: Denies visual changes, eye pain. Denies sore throat, oral lesions, difficulty swallowing. CARDIOVASCULAR: Denies palpitations. Denies lower extremity edema. RESPIRATORY: Denies cough. Denies shortness of breath, wheezing. GASTROINTESTINAL: Denies abdominal pain or distention. Denies nausea, vomiting, or diarrhea. Denies blood in vomitus, stools, or per rectum. Denies black, tarry stools. Denies constipation. GENITOURINARY: Denies difficulty urinating, painful urination, frequency, blood in urine, or vaginal discharge. MUSCULOSKELETAL: Denies back pain or stiffness. Denies joint pain or swelling. SKIN: Denies rash, lesions or sores. HEMATOLOGIC : Denies easy bruising or bleeding. LYMPHATIC: Denies swollen glands. NEUROLOGICAL: Denies confusion or altered mental status. Denies loss of consciousness. Denies dizziness or lightheadedness. Denies headache. Denies weakness or paralysis. Denies problems difficulty with ambulation, slurred speech. Denies sensory loss, numbness, or tingling. Denies seizures. PSYCHIATRIC: Denies anxiety or stress. Denies depression, suicidal ideation, or homicidal ideation. Denies visual or auditory hallucinations. Physical Exam - Vital signs Vitals: Temp Pulse Resp BP Pulse Ox 98.2 F 96 18 149/100 H 97 01/16/19 09:12 01/16/19 09:12 01/16/19 09:12 01/16/19 09:12 01/16/19 09:12 - Notes Notes: PHYSICAL EXAMINATION: GENERAL: Well-appearing, well-nourished and in no acute distress. HEAD: Atraumatic, normocephalic. EYES: Pupils equal round and reactive to light, extraocular movements intact, conjunctiva are normal. ENT: Nares patent, oropharynx clear without exudates. Moist mucous membranes. NECK: Normal range of motion, supple without lymphadenopathy. Increased muscle tonicity along the trapezius bilaterally. LUNGS: Breath sounds clear to auscultation bilaterally and equal. No wheezes rales or rhonchi. HEART: Regular rate and rhythm without murmurs ABDOMEN: Soft, nontender, nondistended abdomen. No guarding, no rebound. No masses appreciated. Female : deferred Musculoskeletal: Normal range of motion, no pitting or edema. No cyanosis. Left upper extremity-pain with palpation to the left bicep, pain with extension. No bruising, ecchymosis, obvious deformity. NEUROLOGICAL: Cranial nerves grossly intact. Normal speech, normal gait. Normal sensory, motor exams PSYCH: Normal mood, normal affect. SKIN: Warm, Dry, normal turgor, no rashes or lesions noted. Course - Re-evaluation Re-evalutation: 01/16/19 13:21 Laboratory 01/16/19 01/16/19 01/16/19 10:22 10:22 10:22 WBC 3.9 L RBC 4.09 Hgb 12.7 Hct 37.8 MCV 93 MCH 31.1 MCHC 33.6 RDW 13.9 Plt Count 148 L Seg Neutrophils % 34.3 L Lymphocytes % 52.2 H Monocytes % 8.6 Eosinophils % 3.9 Basophils % 1.0 Absolute Neutrophils 1.3 L Absolute Lymphocytes 2.0 Absolute Monocytes 0.3 Absolute Eosinophils 0.2 Absolute Basophils 0.0 Sodium 142.0 Potassium 3.6 Chloride 102 Carbon Dioxide 31 H Anion Gap 9 BUN 14 Creatinine 0.92 Est GFR ( Amer) > 60 Est GFR (Non-Af Amer) > 60 Glucose 104 Calcium 9.8 Total Bilirubin 0.8 Direct Bilirubin 0.4 Neonat Total Bilirubin Not Reportable Neonat Direct Bilirubin Not Reportable Neonat Indirect Bili Not Reportable AST 36 ALT 36 Alkaline Phosphatase 70 Creatine Kinase 79 Troponin I < 0.012 Total Protein 7.9 Albumin 4.5 Lipase 45.3 Urine Color Urine Appearance Urine pH Ur Specific [place] Urine Protein Urine Glucose (UA) Urine Ketones Urine Blood Urine Nitrite Urine Bilirubin Urine Urobilinogen Ur Leukocyte Esterase Urine WBC (Auto) Urine RBC (Auto) U Hyaline Cast (Auto) Squamous Epi Cells Auto Urine Mucus (Auto) Urine Ascorbic Acid 01/16/19 10:22 WBC RBC Hgb Hct MCV MCH MCHC RDW Plt Count Seg Neutrophils % Lymphocytes % Monocytes % Eosinophils % Basophils % Absolute Neutrophils Absolute Lymphocytes Absolute Monocytes Absolute Eosinophils Absolute Basophils Sodium Potassium Chloride Carbon Dioxide Anion Gap BUN Creatinine Est GFR ( Amer) Est GFR (Non-Af Amer) Glucose Calcium Total Bilirubin Direct Bilirubin Neonat Total Bilirubin Neonat Direct Bilirubin Neonat Indirect Bili AST ALT Alkaline Phosphatase Creatine Kinase Troponin I Total Protein Albumin Lipase Urine Color YELLOW Urine Appearance SLIGHTLY-CLOUDY Urine pH 5.0 Ur Specific [place] 1.018 Urine Protein NEGATIVE Urine Glucose (UA) NEGATIVE Urine Ketones NEGATIVE Urine Blood NEGATIVE Urine Nitrite NEGATIVE Urine Bilirubin NEGATIVE Urine Urobilinogen NEGATIVE Ur Leukocyte Esterase NEGATIVE Urine WBC (Auto) 1 Urine RBC (Auto) 1 U Hyaline Cast (Auto) 1 Squamous Epi Cells Auto 9 Urine Mucus (Auto) RARE Urine Ascorbic Acid NEGATIVE Chest X-Ray 01/16/19 10:07 IMPRESSION: NO SIGNIFICANT RADIOGRAPHIC FINDING IN THE CHEST. Temp Pulse Resp BP Pulse Ox 98.2 F 96 14 144/95 H 96 01/16/19 09:12 01/16/19 09:12 01/16/19 13:01 01/16/19 13:01 01/16/19 13:01 48-year-old female with hypertension on hydrochlorothiazide presents with multiple complaints including neck pain, left bicep pain and midsternal chest pain. Patient states neck pain started 4 days prior to arrival. She describes it as bilateral, aching. Left arm pain started 3 days prior to arrival. It is located in her left bicep described as an aching throbbing pain that is worse with extension. Vital signs reviewed and within normal limits. Patient's exam is significant for increased muscle tonicity along the trapezius bilaterally and left bicep tenderness. I do not believe this pain is cardiac in nature and believe this is likely overuse. HEART Score: History-0 ECG-0 Age-0 Risk Factors-1 Troponin-0 Total: 1 If HEART score is = 3 AND both troponin measurements are normal, the 30 day risk of a major adverse cardiac event (all-cause mortality, myocardial infarction or need for coronary revascularization) is < 1% (Sensitivity 100%, NPV 100%). Chest pain in a patient without evidence of cardiac or other serious etiology on workup today. I discussed with patient that, based on their age, risk factors and emergency department testing today, the likelihood that their symptoms are related to a heart attack is very low (estimated risk of heart attack or over the next 30 days of less than 1%). The patient demonstrates decision making capacity and has verbalized an understanding of these risks to me. Based on this, the patient has chosen to follow-up as an outpatient. Usual chest pain return precautions reviewed. The patient states understanding and agreement with this plan. 01/17/19 15:58 - Vital Signs Vital signs: Temp Pulse Resp BP Pulse Ox 98.2 F 96 14 144/95 H 96 01/16/19 09:12 01/16/19 09:12 01/16/19 13:01 01/16/19 13:01 01/16/19 13:01 - Laboratory Result Diagrams: 01/16/19 10:22 01/16/19 10:22 Laboratory results interpreted by me: 01/16/19 01/16/19 10:22 10:22 WBC 3.9 L Plt Count 148 L Seg Neutrophils % 34.3 L Lymphocytes % 52.2 H Absolute Neutrophils 1.3 L Carbon Dioxide 31 H - Diagnostic Test Radiology reviewed: Image reviewed, Reports reviewed - EKG Interpretation by Me EKG shows normal: Sinus rhythm Rate: Normal Rhythm: NSR When compared to previous EKG there are: Previous EKG unavailable Discharge - Discharge Clinical Impression: Biceps strain Qualifiers: Encounter type: initial encounter Laterality: left Qualified Code(s): S46.212A - Strain of muscle, fascia and tendon of other parts of biceps, left arm, initial encounter Cervical strain Qualifiers: Encounter type: initial encounter Qualified Code(s): S16.1XXA - Strain of muscle, fascia and tendon at neck level, initial encounter Condition: Good Disposition: HOME, SELF-CARE Instructions: High Blood Pressure ([facility]), Muscle Strain ([facility]), Neck Injury (Ce rvical Strain) ([facility]) Additional Instructions: Follow up with your [id number] hours for further care or return to the ED IMMEDIATELY if symptoms worsen or you have any concerns. If you cannot afford to follow up with your primary care physician a list of low cost clinics have been provided at the end of your discharge papers as well. Most prescribed medications have multiple side effects. The safest thing to do is when filling your prescription speak to your pharmacist regarding possible interactions with your normal home medications and over the counter medications such as Ibuprofen, Tylenol, Benadryl. If you experience any symptoms that cause you discomfort or concern you should discontinue the medication immediately and return to the emergency room or call your primary care physician. Prescriptions: Ibuprofen [Motrin 600 Mg Tablet] 600 mg PO TID #15 tablet Referrals: ELADIO ARREOLA DO [Primary Care Provider] - Follow up as needed
--- NOTE | 2019-01-16 13:24 | EKG REPORT ---
SEVERITY:- BORDERLINE ECG - SINUS RHYTHM LVH BY VOLTAGE NONSPECIFIC ST-T CHANGES- INFERIOR LEADS, MILD, UNCHANGED FROM 09/28/18 ELG. : Confirmed by: Ryan Willis MD 16-Jan-2019 13:23:11
== END 2019-01-16 13:40 | disposition home or self-care (01) ==
LOC: ER 09:09
DX: S46.212A Strain of muscle, fascia and tendon of other parts of biceps, left arm, initial encounter (principal); S16.1XXA Strain of muscle, fascia and tendon at neck level, initial encounter; X58.XXXA Exposure to other specified factors, initial encounter; M54.2 Cervicalgia; R07.9 Chest pain, unspecified; M79.18 Myalgia, other site; R11.0 Nausea; I10 Essential (primary) hypertension; Z79.899 Other long term (current) drug therapy; F17.210 Nicotine dependence, cigarettes, uncomplicated; Z71.6 Tobacco abuse counseling
CPT/HCPCS: 93005; 99406; 99284; 96374; 36415; 82550; 83690; 85025; 80053; 81001; 84484; 71046; 93010; J1885

== ENCOUNTER 2020-02-25 09:14 | Emergency (ER) | payer SELFPAY ==
[2020-02-25 10:26] LABS: ABSOLUTE EOSINOPHILS # (AUTO) 0.2 10^3/uL (0.0-0.6); ABSOLUTE LYMPHOCYTES (AUTO) 2.2 10^3/uL (0.5-4.7); ABSOLUTE MONOCYTES (AUTO) 0.4 10^3/uL (0.1-1.4); ABSOLUTE NEUT (AUTO) 2.1 10^3/uL (1.7-8.2); EOSINOPHILS % (AUTO) 3.3 % (0-6); HEMATOCRIT 38.6 % (36.0-47.0); LYMPHOCYTES % (AUTO) 44.8 % (13-45); MEAN CORPUSCULAR HEMOGLOBIN 31.1 pg (27.0-33.4); MEAN CORPUSCULAR HGB CONC 33.8 g/dL (32.0-36.0); MEAN CORPUSCULAR VOLUME 92 fl (80-97); MONOCYTES % (AUTO) 8.6 % (3-13); PLATELET COUNT 164 10^3/uL (150-450); RED BLOOD COUNT 4.19 10^6/uL (3.72-5.28); RED CELL DISTRIBUTION WIDTH 14.7 % (11.5-14.0); SEGMENTED NEUTROPHILS % (AUTO) 42.3 % (42-78); TOTAL CELLS COUNTED % (AUTO) 100 %; WHITE BLOOD COUNT 4.9 10^3/uL (4.0-10.5)
[2020-02-25 10:30] LABS: ALBUMIN 4.7 g/dL (3.5-5.0); ALKALINE PHOSPHATASE 101 U/L (38-126); ANION GAP 7 (5-19); ASPARTATE AMINO TRANSFERASE 47 U/L (14-36); BILIRUBIN,TOTAL 0.6 mg/dL (0.2-1.3); BLOOD UREA NITROGEN 12 mg/dL (7-20); CALCIUM 9.7 mg/dL (8.4-10.2); CARBON DIOXIDE 28 mmol/L (22-30); CHLORIDE 102 mmol/L (98-107); CREATINE KINASE 73 U/L (30-135); GLUCOSE 110 mg/dL (75-110); POTASSIUM 4.1 mmol/L (3.6-5.0); TOTAL PROTEIN 8.3 g/dL (6.3-8.2)
[2020-02-25 10:41] LABS: CREATINE KINASE MB 1.13 ng/mL (<4.55)
[2020-02-25 10:43] LABS: TROPONIN I < 0.012 ng/mL
--- NOTE | 2020-02-25 10:43 | RADIOLOGY REPORT (SQ) ---
EXAM DESCRIPTION: CHEST 2 VIEWS IMAGES COMPLETED DATE/TIME: 02/25/2020 10:30 am REASON FOR STUDY: Chest Pain COMPARISON: 01/16/2019 TECHNIQUE: Frontal and lateral radiographic views of the chest acquired. NUMBER OF VIEWS: Two view. LIMITATIONS: None. FINDINGS: LUNGS AND PLEURA: No pneumothorax. No consolidation or pleural effusion. MEDIASTINUM AND HILAR STRUCTURES: Stable. HEART AND VASCULAR STRUCTURES: Stable. BONES: No acute findings. HARDWARE: None in the chest. OTHER: No other significant finding. IMPRESSION: NO ACUTE FINDINGS. TECHNICAL DOCUMENTATION: JOB ID: [id number] [employer]- All Rights Reserved Reading location - IP/workstation name: [email or web address]
[2020-02-25] MEDS ORDERED: ASPIRIN 325 MG TABLET PO ONE (10:52)
--- NOTE | 2020-02-25 11:00 | ER Document Report ---
ED Cardiac - General Chief Complaint: Chest Pain Stated Complaint: CHEST PAIN,BACK PAIN,HEADACHE Time Seen by Provider: 02/25/20 10:40 Primary Care Provider: ELADIO ARREOLA DO [Primary Care Provider] - Follow up as needed Notes: HPI: Patient is a 49-year-old female that states on Wednesday she was laying in bed and felt like she was having a "panic attack". She states she felt some tingling to the upper extremities and feet. She states she was having some difficulty falling asleep but then fell asleep just fine. She states on Wednesday, yesterday she felt relatively well. She states she did feel some "rumbling" in her stomach that was improved with food. She denies any vomiting or diarrhea. She states today she felt some pain to her left scapula worse with movement. No pain laying still. She states it did radiate around to the left chest. She denies any runny nose, congestion, or cough. No calf pain or leg swelling. ROS: See HPI All other review of systems reviewed and otherwise negative Reviewed vital signs and nursing note as charted by RN. PHYSICAL EXAM: CONSTITUTIONAL: Alert and oriented and responds appropriately to questions. Well-appearing; well-nourished HEAD: Normocephalic; atraumatic NECK: Supple without meningismus; non-tender; no cervical lymphadenopathy, no masses CARD: Regular rate and rhythm; no murmurs; symmetric distal pulses RESP: Normal chest excursion without splinting or tachypnea; breath sounds clear and equal bilaterally; no wheezes, no rhonchi, no rales ABD/GI: Normal bowel sounds; non-distended; soft, non-tender; no palpable organomegaly or masses BACK: The back appears normal; patient has some mild left paraspinal muscular tenderness just medial to the left scapula with no swelling erythema EXT: Normal ROM in all joints; non-tender to palpation; no edema SKIN: No acute lesions noted NEURO: CN 2-12 intact; 5/5 bilateral upper and lower extremity strength with sensation intact to light touch PSYCH: The patient's mood and manner are appropriate. Grooming and personal hygiene are appropriate. TRAVEL OUTSIDE OF THE [place] IN LAST 30 DAYS: No - Related Data Allergies/Adverse Reactions: acetaminophen [From Percocet] Adverse Reaction (Verified 01/16/19 09:10) oxycodone [From Percocet] Adverse Reaction (Verified 01/16/19 09:10) Home Medications: HCTZ Past Medical History - Social History Smoking Status: Never Smoker Drug Abuse: Marijuana Family History: Hypertension - Past Medical History Cardiac Medical History: Reports: Hx Hypertension Renal/ Medical History: Denies: Hx Peritoneal Dialysis Past Surgical History: Reports: Hx Cholecystectomy, Hx Hysterectomy, Hx Tubal Ligation - Immunizations Hx Diphtheria, Pertussis, Tetanus Vaccination: Yes Physical Exam - Vital signs Vitals: Temp Pulse Resp BP Pulse Ox 97.9 F 88 20 159/113 H 100 02/25/20 09:29 02/25/20 09:29 02/25/20 09:29 02/25/20 09:29 02/25/20 09:29 Course - Re-evaluation Re-evalutation: EKG shows a heart rate of 87, normal sinus rhythm, LVH, no ST elevation or depr ession. 02/25/20 10:59 Given the above history and physical examination, we will obtain a cardiac p eliza, BNP, x-ray of the chest, and reassess. Patient currently has no abdominal discomfort. Vital signs as recorded. No hypoxia or tachycardia, currently pain-free. Given the constellation of symptoms with the patient's history, I do believe ACS, PE, dissection to be unlikely. We will obtain a repeat 3-hour troponin and reassess. 02/25/20 14:16 Repeat troponin as recorded. Vital signs are stable. Patient has had some elevated blood pressure readings here with some normal/less elevated blood pressures as well. Patient was on blood pressure medications and was taken off of the blood pressure medications by the primary care physician. Patient currently has no headache, blurry vision, chest pain, lower extremity edema with 2- troponins. I will hold on restarting the patient's blood pressure medications and have the patient follow-up with the primary care physician. Patient understands these instructions. Strict return precautions have been explained. - Vital Signs Vital signs: Temp Pulse Resp BP Pulse Ox 97.9 F 88 19 132/88 H 100 02/25/20 09:29 02/25/20 09:29 02/25/20 13:00 02/25/20 11:09 02/25/20 13:00 - Laboratory Result Diagrams: 02/25/20 09:51 02/25/20 09:51 Laboratory results interpreted by me: 02/25/20 02/25/20 09:51 09:51 RDW 14.7 H AST 47 H ALT 50 H Total Protein 8.3 H Discharge - Discharge Clinical Impression: Pain of left scapula, Atypical chest pain Condition: Good Disposition: HOME, SELF-CARE Additional Instructions: Come back immediately for any worsening pain, change in location or quality of pain, weakness or numbness, leg swelling, fever, shortness of breath, or any other acute problems. Please follow-up with your primary care physician for reassessment and for further management of your blood pressure. If you would like you can start taking [id number] Prilosec once daily. This will help with reflux symptoms after taking it for around 1 week. Referrals: ELADIO ARREOLA, [Primary Care Provider] - Follow up as needed
--- NOTE | 2020-02-25 11:13 | EKG REPORT ---
SEVERITY:- ABNORMAL ECG - SINUS RHYTHM LEFT VENTRICULAR HYPERTROPHY : Confirmed by: Ryan Willis MD 25-Feb-2020 11:12:54
[2020-02-25 11:32] LABS: APPEARANCE,URINE SLIGHTLY-CLOUDY; BILIRUBIN,URINE NEGATIVE (NEGATIVE); COLOR,URINE STRAW; GLUCOSE, URINE NEGATIVE (NEGATIVE); KETONES,URINE NEGATIVE (NEGATIVE); LEUKOCYTE ESTERASE,URINE NEGATIVE (NEGATIVE); NITRITE,URINE NEGATIVE (NEGATIVE); PROTEIN,URINE NEGATIVE (NEGATIVE); URINE SPECIFIC GRAVITY 1.008; UROBILINOGEN,URINE NEGATIVE mg/dL (<2.0)
[2020-02-25] MEDS ORDERED: LIDOCAINE 2% VISCOUS SOLN 15 ML UDCUP ONE (13:00)
[2020-02-25] MEDS ORDERED: MAG HYDROX/AL HYDROX/SIMETH SUSP 30 ML UDCUP ONE (13:00)
[2020-02-25] MEDS ORDERED: METOCLOPRAMIDE HCL ORAL SOLN 10 MG/10 ML UDCUP ONE (13:00)
[2020-02-25] MEDS ORDERED: MAG HYDROX/AL HYDROX/SIMETH SUSP 30 ML UDCUP PO ONE (13:04)
[2020-02-25] MEDS ORDERED: LIDOCAINE 2% VISCOUS SOLN 15 ML UDCUP PO ONE (13:05)
[2020-02-25] MEDS ORDERED: METOCLOPRAMIDE HCL ORAL SOLN 10 MG/10 ML UDCUP PO ONE (13:05)
[2020-02-25 14:23] VITALS: BP 142/97
== END 2020-02-25 14:45 | disposition home or self-care (01) ==
LOC: ER 09:14
DX: R07.89 Other chest pain (principal); M25.512 Pain in left shoulder; R07.9 Chest pain, unspecified; M54.9 Dorsalgia, unspecified; R51 Headache; R20.0 Anesthesia of skin; Z88.8 Allergy status to other drugs, medicaments and biological substances; F12.10 Cannabis abuse, uncomplicated; I10 Essential (primary) hypertension
CPT/HCPCS: 93005; 99284; 36415; 82553; 82550; 85025; 80053; 81001; 84484; 83880; 71046; 93010; J3490

== ENCOUNTER → 2020-04-08 | Outpatient (CLI) | payer SELFPAY ==
[2020-04-08 10:28] VITALS: BP 151/84
--- NOTE | 2020-04-08 10:28 | ER RDC ASSESSMENT REPORT ---
Intake - In the Last 14 days Have you traveled outside [place]?: No Have you been in close contact with someone CONFIRMED: Yes Worked in Healthcare?: No - Symptoms Subjective Fever([place] feverish): No Chills: No Muscule Aches: No Runny Nose: No Sore Throat: No Cough (New or worsening chronic cough): No Shortness of breath: No Nausea or Vomiting: No Headache: No Abdominal Pain: No Diarrhea(3 or more loose stools in last 24 hours): No - Do you have any of the following Chronic lung disease: Asthma or emphysema or COPD: No Cystic Fibrosis: No Diabetes: No High Blood Pressure: Yes Cardiovascular Disease: No Chronic Kidney Disease: No Chronic Liver Disease: No Chronic blood disorder like Sickle Cell Disease: No Weak immune system due to disease or medication: No Neurologic condition that limits movement: No Developmental delay - Moderate to Severe: No Recent (within past 2 weeks) or current : No Morbid Obesity (>100 pounds over ideal weight): No - Objective Temperature: 98.5 F Pulse Rate: 88 Respiratory Rate: 18 Blood Pressure: 151/84 O2 Sat by Pulse Oximetry: 98 Objective: Given above, testing performed: covid Disposition: Home; Selfcare General - General Stated Complaint: asymptomatic, covid screen Time Seen by Provider: 04/08/20 10:26 Mode of Arrival: Ambulatory Information source: Patient - HPI Notes: Patient presents to clinic for COVID-19 testing after coming in close contact with another COVID 19 positive individual. Patient is asymptomatic. They deny any cough, shortness of breath, fever, chills, muscle aches, rhinorrhea, sore throat, nausea or vomiting, headache, abdominal pain or diarrhea. Patient has no acute medical concerns. - Related Data Allergies/Adverse Reactions: acetaminophen [From Percocet] Adverse Reaction (Verified 01/16/19 09:10) oxycodone [From Percocet] Adverse Reaction (Verified 01/16/19 09:10) Past Medical History - General Information source: Patient - Social History Smoking Status: Current Every Day Smoker Cigarette use (# per day): Yes - 2 Smoking Education Provided: Yes Family History: Hypertension - Past Medical History Cardiac Medical History: Reports: Hx Hypertension Pulmonary Medical History: Reports: None EENT Medical History: Reports: None Neurological Medical History: Reports: None Endocrine Medical History: Reports: None Renal/ Medical History: Reports: None. Denies: Hx Peritoneal Dialysis Malignancy Medical History: Reports: None GI Medical History: Reports: None Musculoskeletal Medical History: Reports None Skin Medical History: Reports None Psychiatric Medical History: Reports: None Traumatic Medical History: Reports: None Infectious Medical History: Reports: None Past Surgical History: Reports: Hx Cholecystectomy, Hx Hysterectomy, Hx Tubal Ligation Physical Exam - General General appearance: Appears well, Alert In distress: None Notes: PHYSICAL EXAMINATION: GENERAL: Well-appearing and in no acute distress. HEAD: Atraumatic, normocephalic. EYES: sclera anicteric, conjunctiva are normal. ENT: nares patent. Moist mucous membranes. NECK: Normal range of motion, supple without lymphadenopathy. LUNGS: No increased work of breathing. Lung sounds CTAB and equal. No wheezes rales or rhonchi. HEART: Regular rate and rhythm without murmurs. ABDOMEN: Soft, nontender, normal bowel sounds, no guarding. EXTREMITIES: Normal range of motion, no pitting edema. No cyanosis. NEUROLOGICAL: A&O x 3. Normal speech. PSYCH: Normal mood, normal affect. SKIN: Warm, Dry, normal turgor, no rashes or lesions noted Patient Education/Counseling Counseling/Education: Patient presents for COVID 19 testing after close exposure to another person who has tested positive for COVID 19. Patient is asymptomatic at this time. Patient does not have emergency worrying symptoms such as difficulty breathing, shortness of breath, chest pain, pressure, confusion or cyanosis. Patient appears suitable for discharge as vital signs are stable and patient is nontoxic in appearance. Good return precautions have been discussed with patient, patient verbalized understanding and is agreeable with discharge plan of care at this time. Guidance for worsening S/SX: As a person under investigation for Covid 19, the [place] department of Health and Human Services, division of public health advises you to adhere to the following guidance until your test results are reported to you. If your test result is positive, you will receive additional information from your provider and your local health department at that time. Remain at home until you are cleared by the health provider or public health authorities. Keep a log of visitors to your home, notify any visitors to your home of your isolation status. If you plan to move to a new address or leave the county, notify the local health department in your County. Call your doctor or seek care if you have an urgent medical need. Before seeking medical care, call ahead to get instructions from the provider before arriving at the medical office clinic or hospital. Notify them that you are being tested for the virus that causes Covid 19 so that arrangements can be made, as necessary, to prevent transmission to others in the healthcare setting. Next, notify the local health department in your county. If a medical emergency arises and you need to call 911, inform the first responders that you are being tested for the virus that causes Covid 19. Next, notify the local health department in your counts include [facility] beds at the [facility]. RDC Discharge - Discharge Clinical Impression: Encounter for screening laboratory testing for COVID-19 virus in asymptomatic patient Condition: Good Disposition: Home; Selfcare
== END ==
LOC: RDC 09:56
PROVIDERS: ATTEND Registered Nurse
DX: Z03.818 Encounter for observation for suspected exposure to other biological agents ruled out (principal)
CPT/HCPCS: 87635; C9803; 99201; 99211

== ENCOUNTER 2020-08-24 11:44 | Emergency (ER) | payer SELFPAY ==
[2020-08-24] MEDS ORDERED: ASPIRIN 81 MG TABLET, CHEWABLE PO ONE (12:10)
--- NOTE | 2020-08-24 12:12 | ER Document Report ---
ED Medical Screen (RME) - General Chief Complaint: Chest Pain Stated Complaint: CHEST PAIN,RIGHT ARM PAIN Time Seen by Provider: 08/24/20 12:06 Primary Care Provider: ELADIO ARREOLA DO [Primary Care Provider] - Follow up as needed Notes: HPI: 50-year-old female with history of hypertension obesity, family history of CAD presenting for heaviness in the anterior chest with some radiation of discomfort and tingling into the right shoulder right arm while walking at the store today. She was short of breath with this. States it continues currently. No history of anything similar. States intermittently through the week she has had some discomfort through the chest into the right shoulder region which she describes as a burning sensation. Patient is currently following with gastroenterology for abdominal discomfort and is due for endoscopy on Wednesday. No prior history of cardiac evaluation or stress test PHYSICAL EXAMINATION: EKG sinus tachycardia without other ectopy. Lung sounds are clear to auscultation, mildly tachycardic rhythm. Patient is mildly anxious I have greeted and performed a rapid initial assessment of this patient. A comprehensive ED assessment and evaluation of the patient, analysis of test results and completion of medical decision making process will be conducted by an additional ED providers. Please note that clinical decision making for this patient was made during the 2019 pandemic of novel coronavirus which caused a significant strain on the healthcare system including at this particular facility. Criteria for admission discharge and level of care decisions as well as treatment decisions have necessarily changed TRAVEL OUTSIDE OF THE [place] IN LAST 30 DAYS: No - Related Data Allergies/Adverse Reactions: acetaminophen [From Percocet] Adverse Reaction (Verified 01/16/19 09:10) oxycodone [From Percocet] Adverse Reaction (Verified 01/16/19 09:10) Past Medical History - Past Medical History Cardiac Medical History: Reports: Hx Hypertension Renal/ Medical History: Denies: Hx Peritoneal Dialysis Past Surgical History: Reports: Hx Cholecystectomy, Hx Hysterectomy, Hx Tubal Ligation - Immunizations Hx Diphtheria, Pertussis, Tetanus Vaccination: Yes Physical Exam - Vital signs Vitals: Temp Pulse Resp BP Pulse Ox 98.5 F 94 20 119/86 H 99 08/24/20 12:04 08/24/20 12:04 08/24/20 12:04 08/24/20 12:04 08/24/20 12:04 Course - Vital Signs Vital signs: Temp Pulse Resp BP Pulse Ox 98.5 F 94 20 119/86 H 99 08/24/20 12:04 08/24/20 12:04 08/24/20 12:04 08/24/20 12:04 08/24/20 12:04 Doctor's Discharge - Discharge Referrals: ELADIO ARREOLA DO [Primary Care Provider] - Follow up as needed
[2020-08-24 12:50] LABS: INTERNATIONAL RATION (INR) 0.88; PROTHROMBIN TIME 12.2 SEC (11.4-15.4)
[2020-08-24 12:58] LABS: ABSOLUTE BASOPHILS # (AUTO) 0.1 10^3/uL (0.0-0.2); ABSOLUTE EOSINOPHILS # (AUTO) 0.2 10^3/uL (0.0-0.6); ABSOLUTE LYMPHOCYTES (AUTO) 2.3 10^3/uL (0.5-4.7); ABSOLUTE MONOCYTES (AUTO) 0.3 10^3/uL (0.1-1.4); ABSOLUTE NEUT (AUTO) 1.9 10^3/uL (1.7-8.2); BASOPHILS % (AUTO) 1.3 % (0-2); EOSINOPHILS % (AUTO) 4.9 % (0-6); HEMATOCRIT 38.2 % (36.0-47.0); LYMPHOCYTES % (AUTO) 47.4 % (13-45); MEAN CORPUSCULAR HEMOGLOBIN 30.9 pg (27.0-33.4); MEAN CORPUSCULAR VOLUME 91 fl (80-97); MONOCYTES % (AUTO) 6.8 % (3-13); PLATELET COUNT 213 10^3/uL (150-450); RED BLOOD COUNT 4.21 10^6/uL (3.72-5.28); RED CELL DISTRIBUTION WIDTH 14.5 % (11.5-14.0); SEGMENTED NEUTROPHILS % (AUTO) 39.6 % (42-78); TOTAL CELLS COUNTED % (AUTO) 100 %; WHITE BLOOD COUNT 4.9 10^3/uL (4.0-10.5)
[2020-08-24 13:06] LABS: ALBUMIN 4.8 g/dL (3.5-5.0); ALKALINE PHOSPHATASE 88 U/L (38-126); ANION GAP 10 (5-19); ASPARTATE AMINO TRANSFERASE 76 U/L (14-36); BILIRUBIN,DIRECT 0.4 mg/dL (0.0-0.4); BILIRUBIN,TOTAL 0.8 mg/dL (0.2-1.3); BLOOD UREA NITROGEN 11 mg/dL (7-20); CARBON DIOXIDE 26 mmol/L (22-30); CHLORIDE 103 mmol/L (98-107); GLUCOSE 108 mg/dL (75-110); POTASSIUM 4.4 mmol/L (3.6-5.0); TOTAL PROTEIN 8.6 g/dL (6.3-8.2)
--- NOTE | 2020-08-24 13:32 | RADIOLOGY REPORT (SQ) ---
EXAM DESCRIPTION: CHEST 2 VIEWS IMAGES COMPLETED DATE/TIME: 08/24/2020 12:06 pm REASON FOR STUDY: chest pain COMPARISON: None. EXAM PARAMETERS: NUMBER OF VIEWS: two views TECHNIQUE: Digital Frontal and Lateral radiographic views of the chest acquired. RADIATION DOSE: NA LIMITATIONS: none FINDINGS: LUNGS AND PLEURA: No opacities, masses or pneumothorax. No pleural effusion. MEDIASTINUM AND HILAR STRUCTURES: No masses or contour abnormalities. HEART AND VASCULAR STRUCTURES: Heart normal size. No evidence for failure. BONES: No acute findings. HARDWARE: None in the chest. OTHER: No other significant finding. IMPRESSION: NO ACUTE RADIOGRAPHIC FINDING IN THE CHEST. TECHNICAL DOCUMENTATION: JOB ID: [id number] 2010 [employer]- All Rights Reserved Reading location - IP/workstation name: [id number]
--- NOTE | 2020-08-24 16:38 | RADIOLOGY REPORT (SQ) ---
EXAM DESCRIPTION: CTA CHEST IMAGES COMPLETED DATE/TIME: 08/24/2020 3:12 pm REASON FOR STUDY: CHEST PAIN/ELEVATED D DIMER COMPARISON: Chest radiograph same date. TECHNIQUE: CT scan of the chest performed using helical scanning technique with dynamic intravenous contrast injection. Images reviewed with lung, soft tissue and bone windows. Reconstructed coronal and sagittal MPR images reviewed. Additional 3 dimensional post-processing performed to develop Maximal Intensity Projection images (CO P). All images stored on PACS. All CT scanners at this facility use dose modulation, iterative reconstruction, and/or weight based d osing when appropriate to reduce radiation dose to as low as reasonably achievable (ALARA). [facility]: Dose Right [facility]: CareDose [facility]: Dose Right [facility]: Teradose 4D [facility]: [place] CONTRAST TYPE AND DOSE: contrast/concentration: Isovue 350.00 mmol/ml; Total Contrast Delivered: 75. 0 ml; Total Saline Delivered: 45.0 ml Contrast bolus optimized for the pulmonary arteries. Not diagnostic for the aorta. RENAL FUNCTION: GFR > 60. RADIATION DOSE: CT Rad equipment meets quality standard of care and radiation dose reduction techniq ues were employed. CTDIvol: 5.0 - 20.4 mGy. DLP: 700 mGy-cm. . LIMITATIONS: None. FINDINGS: LUNGS AND PLEURA: No masses, infiltrates, or pneumothorax. No pleural effusions or pleura l calcifications. AORTA AND GREAT VESSELS: No aneurysm. Contrast bolus not optimized for the aorta. HEART: No pericardial effusion. No significant coronary artery calcifications. PULMONARY ARTERIES: No emboli visualized in the main pulmonary arteries or the segmental branches. HILAR AND MEDIASTINAL STRUCTURES: No identified masses or abnormal nodes. HARDWARE: None in the chest. UPPER ABDOMEN: No significant findings. Limited exam. THYROID AND OTHER SOFT TISSUES: No masses. No adenopathy. BONES: No acute or significant finding. 3D MIPS: Confirm above findings. OTHER: No other significant finding. IMPRESSION: No acute cardiopulmonary disease. No pulmonary embolism. COMMENT: Quality ID # [id number]: Final reports with documentation of one or more dose reduction techniques (e.g., Automated exposure control, adjustment of the mA and/or kV according to patient size, use of iterative reconstruction technique) TECHNICAL DOCUMENTATION: JOB ID: [id number] 2010 [employer]- All Rights Reserved Reading location - IP/workstation name: [email or web address]
--- NOTE | 2020-08-24 16:55 | RADIOLOGY REPORT (SQ) ---
EXAM DESCRIPTION: VENOUS BILATERAL LOWER IMAGES COMPLETED DATE/TIME: 08/24/2020 3:32 pm REASON FOR STUDY: ACHES IN BOTH LEGS.CHEST PAIN/SMOKER COMPARISON: None. TECHNIQUE: Dynamic and static raymond scale and color images acquired of both lower extremity venous sy stems. Selected spectral images acquired with additional compression and augmentation maneuvers. Imag es stored on PACS. LIMITATIONS: None. FINDINGS: RIGHT LEG COMMON FEMORAL AND FEMORAL: Normal phasicity, compression and augmentation. No visualized echogenic m aterial on raymond scale. No defects on color images. POPLITEAL: Normal compression and augmentation. No visualized echogenic material on raymond scale. No de fects on color images. CALF VESSELS: Normal compression and augmentation. No visualized echogenic material on raymond scale. No defects on color image. GSV AND SSV: Normal compression. No visualized echogenic material on raymond scale. No defects on color images. ANY DEEP VENOUS INSUFFICIENCY: Not evaluated. ANY EVIDENCE OF POPLITEAL CYST: No. OTHER: No other significant finding. LEFT LEG COMMON FEMORAL AND FEMORAL: Normal phasicity, compression and augmentation. No visualized echogenic m aterial on raymond scale. No defects on color images. POPLITEAL: Normal compression and augmentation. No visualized echogenic material on raymond scale. No de fects on color images. CALF VESSELS: Normal compression and augmentation. No visualized echogenic material on raymond scale. No defects on color images. GSV AND SSV: Normal compression. No visualized echogenic material on raymond scale. No defects on color images. ANY DEEP VENOUS INSUFFICIENCY: Not evaluated. ANY EVIDENCE POPLITEAL CYST: No. OTHER: No other significant finding. IMPRESSION: NO EVIDENCE DVT OR SVT IN EITHER LEG. TECHNICAL DOCUMENTATION: JOB ID: [id number] [employer] All Rights Reserved Reading location - IP/workstation name: [id number]
[2020-08-24] MEDS ORDERED: KETOROLAC TROMETHAMINE INJ/PF 30 MG/1 ML SDV IV ONE (17:05)
--- NOTE | 2020-08-24 17:23 | ER Document Report ---
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 Patient states she has had similar episodes in the past due to stress and anxiety. Patient states she is visiting the ED due to history of smoking, HTN, and family history of CAD and VT (family members were in their 70's). Denies neck pain, trouble with bowel movement, history of DM, HLD, stress tests, or VT. Patient states she has recently visited GI for her upper abdominal pain and has a endoscopy scheduled in x4 days. TRAVEL OUTSIDE OF THE [place] IN LAST 30 DAYS: No - Related Data Allergies/Adverse Reactions: acetaminophen [From Percocet] Adverse Reaction (Verified 01/16/19 09:10) oxycodone [From Percocet] Adverse Reaction (Verified 01/16/19 09:10) Home Medications: amlodipine 5 mg Past Medical History - General Information source: Patient, [facility] Records - Social History Smoking Status: Current Every Day Smoker Cigarette use (# per day): Yes Chew tobacco use (# tins/day): No Frequency of alcohol use: Occasional Drug Abuse: None Family History: CAD, Hypertension, Other - VT Patient has homicidal ideation: No - Past Medical History Cardiac Medical History: Reports: Hx Hypertension Denies: Hx Heart Attack, Hx Hypercholesterolemia Endocrine Medical History: Denies: Hx Diabetes Mellitus Type 1, Hx Diabetes Mellitus Type 2 Past Surgical History: Reports: Hx Cholecystectomy, Hx Hysterectomy, Hx Tubal Ligation - Immunizations Hx Diphtheria, Pertussis, Tetanus Vaccination: Yes Review of Systems - Review of Systems Constitutional: No symptoms reported EENT: No symptoms reported Cardiovascular: See HPI, Chest pain Respiratory: No symptoms reported Gastrointestinal: See HPI, Last bowel movement - normal Genitourinary: No symptoms reported Female Genitourinary: No symptoms reported Musculoskeletal: See HPI. denies: Neck pain Skin: No symptoms reported Hematologic/Lymphatic: No symptoms reported Neurological/Psychological: See HPI, Tingling - down bilateral lower extremities and right arm -: Yes All other systems reviewed and negative Physical Exam - Vital signs Vitals: Temp Pulse Resp BP Pulse Ox 98.5 F 94 20 119/86 H 99 08/24/20 12:04 08/24/20 12:04 08/24/20 12:04 08/24/20 12:04 08/24/20 12:04 - General General appearance: Appears well, Alert - HEENT Head: Normocephalic, Atraumatic Eyes: Normal Pupils: PERRL - Respiratory Respiratory status: No respiratory distress Chest status: Nontender Breath sounds: Normal Chest palpation: Normal - Cardiovascular Rhythm: Regular Heart sounds: Normal auscultation, S1 appreciated, S2 appreciated Murmur: No - Abdominal Inspection: Obese Distension: No distension Bowel sounds: Normal Tenderness: Nontender - Back Back: Normal, Nontender, Other - No midline tenderness - Extremities General upper extremity: Normal inspection, Normal ROM General lower extremity: Normal inspection, Nontender, Normal ROM. No: Edema - Neurological Neuro grossly intact: Yes Cognition: Normal Orientation: AAOx4 Caroleen Coma Scale Eye Opening: Spontaneous Ry Coma Scale Verbal: Oriented Ry Coma Scale Motor: Obeys Commands Caroleen Coma Scale Total: 15 Speech: Normal Motor strength normal: LUE, RUE, LLE, RLE Sensory: Normal - Psychological Associated symptoms: Normal affect, Normal mood - Skin Skin Temperature: Warm Skin Moisture: Dry Skin Color: Normal Course - Re-evaluation Re-evalutation: 08/24/20 17:15 Patient is tearful effective and admits to a lot of stress in her life. Patient has a negative work-up for pulmonary embolism, VT ,or any DVT - Vital Signs Vital signs: Temp Pulse Resp BP Pulse Ox 98.5 F 94 23 H 107/78 97 08/24/20 12:04 08/24/20 12:04 08/24/20 14:01 08/24/20 14:01 08/24/20 14:01 08/24/20 17:15 Vital signs stable 08/24/20 17:16 Patient has hyperventilation respiratory rate 23 - Laboratory Results Result Diagrams: 08/24/20 12:31 08/24/20 12:31 Laboratory Results Interpreted: 08/24/20 08/24/20 08/24/20 12:31 12:31 12:31 RDW 14.5 H Lymph % (Auto) 47.4 H Seg Neutrophils % 39.6 L D-Dimer 0.68 H AST 76 H ALT 90 H Total Protein 8.6 H 08/24/20 17:16 Laboratories essentially within normal limits D-dimer 0.68 no critical lab values at this time. Critical Laboratory Results Reviewed: No Critical Results - Radiology Results Radiology Results Interpreted: 08/24/20 17:16 Chest X-Ray 08/24/20 12:10 IMPRESSION: NO ACUTE RADIOGRAPHIC FINDING IN THE CHEST. Venous Doppler Study 08/24/20 13:50 IMPRESSION: NO EVIDENCE DVT OR SVT IN EITHER LEG. Chest/Abdomen CTA 08/24/20 14:48 IMPRESSION: No acute cardiopulmonary disease. No pulmonary embolism. Chest x-ray shows no acute radiographic findings of cardiopulmonary disease. Venous Doppler study of both lower extremities showed no evidence of DVT or SVT in either leg. Chest abdomen CTA no acute cardiopulmonary disease no pulmonary embolism. Critical Radiology Results Reviewed: No Critical Results - EKG Interpretation by Me Additional EKG results interpreted by me: 08/24/20 17:20 Twelve-lead EKG shows sinus tachycardia rate of 103 borderline LAD left axis deviation. No STEMI. Normal intervals for AL interval QRS and QT. Discharge - Discharge Clinical Impression: Chest pain, Epigastric pain, Anxiety in acute stress reaction, Bilateral leg pain Condition: Stable Disposition: HOME, SELF-CARE Additional Instructions: Chest Pain of Unclear Cause The exact cause of your chest pain isn't clear. Fortunately, there is no evidence of a dangerous medical condition. Further testing may be required to find the source of the pain. Most often, we find that this pain is coming from the chest wall -- the muscles or rib joints in the chest. But chest pain can come from the lung and lung lining, the esophagus, the heart valves or heart lining, and even the stomach or gallbladder. Rest. Eat lightly until the pain is gone. We may prescribe medicine for pain and inflammation. You should call the physician immediately if the pain radiates to the shoulder, jaw or arms; if you start to run a fever or develop a cough; or if you develop shortness of breath, or other new or alarming symptoms. Keep your appointment that you have with your resort desk clerk regarding upper endoscopy this week coming up and follow-up with your primary care physician regarding the multiple complaints that you have shared with us today we have not found any life-threatening illness as well as no evidence for heart attack, no evidence for a pulmonary embolism, no evidence for DVT in lower extremities. We strongly advised that you discontinue smoking tobacco. Referrals: ELADIO ARREOLA, DO [Primary Care Provider] - Follow up as needed I personally performed the services described in the documentation, reviewed and edited the documentation which was dictated to the scribe in my presence, and it accurately records my words and actions.
[2020-08-24 17:30] VITALS: BP 132/93
--- NOTE | 2020-08-24 23:14 | EKG REPORT ---
SEVERITY:- OTHERWISE NORMAL ECG - SINUS TACHYCARDIA BORDERLINE LEFT AXIS DEVIATION : Confirmed by: Lisha Carl 24-Aug-2020 23:14:08
== END 2020-08-24 17:30 | disposition home or self-care (01) ==
LOC: ER 11:44
DX: R07.9 Chest pain, unspecified (principal); F41.1 Generalized anxiety disorder; F43.0 Acute stress reaction; R10.13 Epigastric pain; M79.601 Pain in right arm; M79.605 Pain in left leg; M79.604 Pain in right leg; R06.02 Shortness of breath; F17.210 Nicotine dependence, cigarettes, uncomplicated; I10 Essential (primary) hypertension; E66.9 Obesity, unspecified; Z88.6 Allergy status to analgesic agent; Z90.49 Acquired absence of other specified parts of digestive tract
CPT/HCPCS: 93005; 99285; 96374; 36415; 85025; 85610; 80053; 84484; 85379; 93970; 71046; 71275; 93010; J1885

== ENCOUNTER 2020-08-28 09:15 | Day surgery (SDC) | payer OTHER ==
[~2020-08-28 09:15] MED LIST: PROPOFOL INJ 200 MG/20 ML VIAL IV ONE
[2020-08-28 12:11] VITALS: BP 127/87
--- NOTE | 2020-08-28 17:32 | Operative Report ---
Operative Report DATE OF SURGERY: 08/28/20 Operative Report: The risks benefits and alternatives of the procedure explained to the patient in detail and informed consent is obtained.A GIF Olympus video scope was inserted into the patient's mouth and hypopharynx ,the esophagus is identified intubated and insufflated ,the scope was then advanced through the esophagus stomach and duodenum ,retroflexion maneuver is done, the esophagus stomach and first and second portions of the duodenum examined PREOPERATIVE DIAGNOSIS: Abdominal bloating, gastroesophageal reflux disease and dyspepsia POSTOPERATIVE DIAGNOSIS: Gastritis status post biopsy rule out Helicobacter pylori OPERATION: EGD with biopsy SURGEON: SUKHI LEWIS ANESTHESIA: LMAC TISSUE REMOVED OR ALTERED: As noted above. COMPLICATIONS: None. ESTIMATED BLOOD LOSS: None. INTRAOPERATIVE FINDINGS: As noted above. PROCEDURE: Patient tolerated procedure well. No immediate postprocedure complications are noted. Patient is discharged in good condition. Discharge date 08/28/2019. Discharge diet: Regular. Discharge activity: Regular. 2 to 3-week follow-up to discuss findings. Patient is instructed call the office or proceed to the emergency room should there be any further problems questions. Wait on the pathology.
== END 2020-08-28 12:13 | disposition home or self-care (01) ==
LOC: OROUT 09:15
PROVIDERS: ATTEND Internal Medicine Gastroenterology
DX: K29.50 Unspecified chronic gastritis without bleeding (principal); K21.9 Gastro-esophageal reflux disease without esophagitis; I10 Essential (primary) hypertension; F17.210 Nicotine dependence, cigarettes, uncomplicated; Z79.899 Other long term (current) drug therapy; Z78.0 Asymptomatic menopausal state; Z90.49 Acquired absence of other specified parts of digestive tract
CPT/HCPCS: 43239; 88342 ×2; 88305 ×2; 00731; J2704; 731